=== PATIENT | female | born 1960 | race Caucasian/White ===

== ENCOUNTER → 2017-09-28 | Outpatient (CLI) | payer OTHER ==
--- NOTE | 2017-10-01 08:26 | Diagnostic Imaging Report ---
ADDENDUM #1 TECHNIQUE: Magnetic resonance imaging of the LEFT HAND was performed WITHOUT injected contrast as requested. Inhomogeneous fat saturation that partially limits the exam. The patient returned for additional focal examination of the left thumb without contrast. HISTORY: Sprain of the ulnar collateral ligament, fell, date of injury September 20 COMPARISON: None available FINDINGS: BONES: No focal or infiltrative bone marrow replacing abnormalities identified. No acute fracture is visible; however, a small punctate avulsion would be better visualized on radiographs. JOINTS: Mild to moderate degenerative changes of the first carpometacarpal joint with associated synovitis and trace effusion. SOFT TISSUES: The dorsal fibers of the ulnar collateral ligament complex (proper ulnar collateral ligament) appear intact. Focal attenuation at the proximal phalangeal insertion of the mid to volar fibers (series 7 images 8 and 9) about the junction of the proper an accessory ligament. The volar-most fibers of the accessory ulnar collateral ligament appear intact. No complete tear or ligamentous retraction on the static images. IMPRESSION: 1. Focal partial tear/avulsion of ulnar collateral ligament complex fibers at the first proximal phalangeal insertion about the junction of the distal proper and accessory ligaments. No complete tear, retraction or Stener lesion. 2. 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 Signed by: Dr. Darian Singleton D.O., M.M.M. on 10/04/2017 9:54 AM ORIGINAL REPORT TECHNIQUE: Magnetic resonance imaging of the LEFT HAND was performed WITHOUT injected contrast as requested. Inhomogeneous fat saturation that partially limits the exam. HISTORY: Sprain of the ulnar collateral ligament, fell COMPARISON: None available FINDINGS: The requested evaluation of the ulnar collateral ligament is markedly limited given the large [id number] images of the hand. BONES: No focal or infiltrative bone marrow replacing abnormalities identified. JOINTS: Mild degenerative changes of the first carpometacarpal joint with associated synovitis and trace effusion. SOFT TISSUES: Questionable mild edema about portions of the first metacarpophalangeal joint. IMPRESSION: 1. Suboptimal evaluation of the first metacarpophalangeal joint and surrounding soft tissues. The patient is scheduled to return today for a dedicated MRI of the thumb without contrast. An addendum can be generated to this report upon notification of availability of those images for interpretation. 2. Mild first carpometacarpal joint osteoarthrosis. Discussed with pathology technologist Lyudmila via phone on October 01, 2017 at 0821. Signed by: Dr. Darian Singleton D.O., M.M.M. on 10/01/2017 8:22 AM
== END ==
LOC: MRI 16:51
PROVIDERS: ATTEND Family Medicine
DX: S63.642D Sprain of metacarpophalangeal joint of left thumb, subsequent encounter (principal)

== ENCOUNTER → 2019-09-29 | Day surgery (SDC) | payer BC ==
[~2019-09-29] MED LIST: ACETAMINOPHEN 1000 MG/100 ML IV ONE; ASPIR 8181 MG; BUPIVACAINE 0.25% 30ML SDV INJ ONE; DOXYCYCLINE HY100 MG PO; FENTANYL CITRATE/PF 100MCG/2 ML INJ ONE; INSULIN REGULAR, HUMAN 100 UNIT/1 ML 3ML VIAL ONE; LIDOCAINE 1% W/EPINEPHRINE 20 ML VIAL ONE; LIDOCAINE HCL 1% LOCAL INJ 20 ML VIAL ONE; LIDOCAINE HCL 2% 30 ML TUBE ONE; LIDOCAINE HCL 2% LOCAL INJ 5 ML SDV VIAL INJ ONE; METOCLOPRAMIDE HCL 10 MG/2ML VIAL ONE; MIDAZOLAM HCL 2 MG/2 ML VIAL ONE; ONDANSETRON HCL INJ 2MG/ML 2ML 2 MG/ML VIAL ONE; PROPOFOL IV EMULSION 10 MG/ML 20 ML VIAL ONE; SEVOFLURANE INHAL SOLN 250 ML PEN BTL ONE
--- OUTSIDE RECORDS SUMMARY | 2019-09-29 09:17 | XMS REPORT ---
Author Author [facility] Address Unknown Phone Unavailable Care Team Providers Care Link Machine Operator Name Role Phone KANWAL DELANEY Unavailable Unavailable Payers Payer Name Policy Type Policy Number Effective Date Expiration Date Problems This patient has no known problems. Allergies, Adverse Reactions, Alerts Allergy Name Allergy Type Status Severity Reaction(s) Onset Date Inactive Date Treating Clinician Comments soap DA Active U 2018-06-19 00:00:00 Penicillins DA Active U 2018-06-19 00:00:00 Sulfa (Sulfonamide Antibiotics) DA Active U 2018-06-19 00:00:00 iodine DA Active U 2018-06-19 00:00:00 propoxyphene DA Active U 2018-06-19 00:00:00 povidone-iodine DA Active U 2018-06-19 00:00:00 shellfish derived DA Active DC 2018-06-19 00:00:00 shellfish derived DA Active DC 2012-08-02 00:00:00 soap DA Active U 2011-02-02 00:00:00 povidone-iodine DA Active U 2011-02-02 00:00:00 Penicillins DA Active U 2011-01-31 00:00:00 Sulfa (Sulfonamide Antibiotics) DA Active U 2011-01-31 00:00:00 iodine DA Active U 2011-01-31 00:00:00 propoxyphene DA Active U 2011-01-31 00:00:00 Medications This patient has no known medications. Results Test Description Test Time Test Comments Text Results Atomic Results Result Comments MRI HAND LEFT WO [facility] [address] [place] [address] Patient Name: TWAN SETHI MR #: [id number] : 1960 Age/Sex: 57/F Req #: [id number] [facility] Physician: Ordered by: KANWAL DELANEY DO Report #: [id number] Location: MRI Room/Bed: Procedure: [id number] MRI/MRI HAND LEFT WO Exam Date: 09/28/17 Exam Time: 1800 REPORT STATUS: Signed ADDENDUM #1 TECHNIQUE: Magnetic resonance imaging of the LEFT HAND was performed WITHOUT injected contrast as requested. Inhomogeneous fat saturation that partially limits the exam. The patient returned for additional focal examination of the left thumb without contrast. HISTORY: Sprain of the ulnar collateral ligament, fell, date of injury September 20 COMPARISON: None available FINDINGS: BONES: No focal or infiltrative bone marrow replacing abnormalities identified. No acute fracture is visible; however, a small punctate avulsion would be better visualized on radiographs. JOINTS: Mild to moderate degenerative changes of the first carpometacarpal joint with associated synovitis and trace effusion. SOFT TISSUES: The dorsal fibers of the ulnar collateral liga ment complex (proper ulnar collateral ligament) appear intact. Focal attenuation at the proximal phalangeal insertion of the mid to volar fibers (series 7 images 8 and 9) about the junction of the proper an accessory ligament. The volar-most fibers of the accessory ulnar collateral ligament appear intact. No complete tear or ligamentous retraction on the static images. IMPRESSION: 1. Focal partial tear/avulsion of ulnar collateral ligament complex fibers at the first proximal phalangeal insertion about the junction of the distal proper and accessory ligaments. No complete tear, retraction or Stener lesion. 2. 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 Signed by: Dr. Sarah Singleton D.O., M.M.M. on 10/04/2017 9:54 AM ORIGINAL REPORT TECHNIQUE: Magnetic resonance imaging of the LEFT HAND was performed WITHOUT injected contrast as requested. Inhomogeneous fat saturation that partially limits the exam. HISTORY: Sprain of the ulnar collateral ligament, fell COMPARISON: None available FINDINGS: The requested evaluation of the ulnar collateral ligament is markedly limited given the large [id number] images of the hand. BONES: No focal or infiltrative bone marrow replacing abnormalities identified. JOINTS: Mild degenerative changes of the first carpometacarpal joint with associated synovitis and trace effusion. SOFT TISSUES: Questionable mild edema about portions of the first metacarpophalangeal joint. IMPRESSION: 1. Suboptimal evaluation of the first metacarpophalangeal joint and surrounding soft tissues. The patient is scheduled to return today for a dedicated MRI of the thumb without contrast. An addendum can be generated to this report upon notification of availability of those images for interpretation. 2. Mild first carpometacarpal joint osteoarthrosis. Discussed with agricultural engineering technologist Lyudmila via phone on October 01, 2017 at 0821. Signed by: Dr. Sarah Singleton D.O., M.M.MVikki on 10/01/2017 8:22 AM Dictated By: SARAH SINGLETON DO [id number] Transcribed By: SHAMAR on 10/01/17 0822 COPY TO: KANWAL DELANEY DO
[2019-09-29 10:09] LABS: BASOPHILS % 0.6 % (0.0-1.0); EOSINOPHILS # (AUTO) 0.1 (0.0-0.4); EOSINOPHILS % 2.9 % (0.0-6.0); HEMATOCRIT 42.5 % (34.2-44.1); HEMOGLOBIN 14.2 g/dL (12.0-16.0); LYMPHOCYTES # (AUTO) 1.1 (1.0-3.2); MEAN CORPUSCULAR HEMOGLOBIN 29.8 pg (28-32); MEAN CORPUSCULAR HGB CONC 33.4 g/dL (31-35); MEAN CORPUSCULAR VOLUME 89.1 fL (81-99); MONOCYTES # (AUTO) 0.3 (0.2-0.8); MONOCYTES % 5.9 % (4.4-11.3); NEUTROPHILS # (AUTO) 3.1 (2.1-6.9); PLATELET COUNT 233 x10e3/uL (140-360); RED BLOOD COUNT 4.77 x10e6/uL (3.6-5.1); RED CELL DISTRIBUTION WIDTH 12.6 % (11.7-14.4)
[2019-09-29 14:37] VITALS: BP 120/69
--- NOTE | 2019-09-29 20:03 | Operative Report ---
DATE OF PROCEDURE: 09/29/2019 SURGEON: Harsh Mccoy MD PREOPERATIVE DIAGNOSIS: Perirectal abscess, rule out fistula. POSTOPERATIVE DIAGNOSIS: Perirectal abscess, no fistula. OPERATION PERFORMED: Incision and drainage of perirectal abscess. ANESTHESIA: General. COMPLICATIONS: None. ESTIMATED BLOOD LOSS: Minimal. DESCRIPTION OF PROCEDURE: With the patient lying in bed in the lithotomy position under good general anesthesia, the perineum was prepped with Hibiclens solution and draped in the usual manner. There was in the perineal area at the two o'clock and at the 3 o'clock position, 2 necrotic openings of the skin roughly about 2-3 inches away from the anorectal verge. Examination internally did not reveal the presence of any internal fistulous opening. There was also no induration right around the rectal area, but rather going more towards to the buttocks area. The 2 necrotic areas of the skin were then opened up and a large amount of purulent material and necrotic fat was encountered. Once this was all sharply resected with a knife, exploration of the cavity revealed that there was really no connection towards the rectum. This was all a gluteal type abscess likely secondary to the patient's uncontrolled diabetes. The two wounds were then copiously irrigated with Hibiclens solution and packed with plain gauze. A dressing was applied. The sponge, lap, and needle count was correct. The patient tolerated the procedure well and returned to the recovery room in stable condition. Harsh Mccoy MD JLR/MODL /[id number]
== END | disposition home or self-care (01) ==
LOC: OR 09:11
PROVIDERS: ATTEND Surgery
DX: K61.1 Rectal abscess (principal); E11.9 Type 2 diabetes mellitus without complications; J45.909 Unspecified asthma, uncomplicated; I25.10 Atherosclerotic heart disease of native coronary artery without angina pectoris; I25.2 Old myocardial infarction; I10 Essential (primary) hypertension; Z90.5 Acquired absence of kidney; Z88.0 Allergy status to penicillin; Z91.041 Radiographic dye allergy status; Z79.82 Long term (current) use of aspirin
CPT/HCPCS: 36415; 46040; 82948; 85025; 93005; J0131; J2001; J2405; J2704; J2765; J3010; J1817

== ENCOUNTER → 2020-06-20 | Day surgery (SDC) | payer BC ==
[2020-06-18 16:49] LABS: BASOPHILS % 0.5 % (0.0-1.0); EOSINOPHILS # (AUTO) 0.1 (0.0-0.4); EOSINOPHILS % 2.1 % (0.0-6.0); HEMATOCRIT 44.9 % (34.2-44.1); LYMPHOCYTES # (AUTO) 1.7 (1.0-3.2); LYMPHOCYTES % 28.5 % (18.0-39.1); MEAN CORPUSCULAR HEMOGLOBIN 29.5 pg (28-32); MEAN CORPUSCULAR HGB CONC 33.4 g/dL (31-35); MEAN CORPUSCULAR VOLUME 88.4 fL (81-99); MONOCYTES # (AUTO) 0.4 (0.2-0.8); MONOCYTES % 6.7 % (4.4-11.3); NEUTROPHILS # (AUTO) 3.6 (2.1-6.9); PLATELET COUNT 239 x10e3/uL (140-360); RED BLOOD COUNT 5.08 x10e6/uL (3.6-5.1)
[2020-06-18 17:01] LABS: INR 0.9; PROTHROMBIN TIME 12.6 seconds (11.9-14.5)
[2020-06-18 17:09] LABS: ALBUMIN 4.2 g/dL (3.5-5.0); ALBUMIN/GLOBULIN RATIO 1.1 (0.8-2.0); CREATININE, SERUM 1.04 mg/dL (0.57-1.11)
--- NOTE | 2020-06-18 17:14 | NUR ---
8394 alert lab received reported to Patient Care Technician Instructor team and Glucose 486 ds/rn
--- NOTE | 2020-06-18 17:40 | NUR ---
1740 spoke with taxonomist Md Dr Wolfe for Dr Dumont no further orders. Reviewed med list with Md and Md states those levels are normal for her. Questionable adherence to Dm medications Probable non fasting sugar, CCL staff to f/o on procedural day with BS pre procedure per Dr Wolfe for Dr Dumont ds/rn
[2020-06-20] VITALS (9 sets, daily range): BP systolic 106–143; BP diastolic 66–96
[~2020-06-20] VITALS: Ht 152.4 cm; Wt 67.1 kg
[~2020-06-20] MED LIST changes: -ACETAMINOPHEN 1000 MG/100 ML IV ONE; +ALPRAZOLAM 0.5 MG TAB ONE; +ASPIRIN ENTERI325 MG PO; -BUPIVACAINE 0.25% 30ML SDV INJ ONE; +DIPHENHYDRAMINE HCL INJ 50 MG/ML VIAL ONE; +FAMOTIDINE 20 MG/2 ML VIAL IV ONE; +HEPARIN SOD/SOD CHLORIDE 2,000 ML ONE; -INSULIN REGULAR, HUMAN 100 UNIT/1 ML 3ML VIAL ONE; +IOPAMIDOL 370 MG/ML 200 ML INFUS..BTL INJ ONE; -LIDOCAINE 1% W/EPINEPHRINE 20 ML VIAL ONE; -LIDOCAINE HCL 1% LOCAL INJ 20 ML VIAL ONE; -LIDOCAINE HCL 2% 30 ML TUBE ONE; +LIDOCAINE HCL 2% LOCAL 20 ML VIAL ONE; -LIDOCAINE HCL 2% LOCAL INJ 5 ML SDV VIAL INJ ONE; +METHYLPREDNISOLONE SOD SUCC 125 MG/2ML VIAL ONE; -METOCLOPRAMIDE HCL 10 MG/2ML VIAL ONE; -ONDANSETRON HCL INJ 2MG/ML 2ML 2 MG/ML VIAL ONE; -PROPOFOL IV EMULSION 10 MG/ML 20 ML VIAL ONE; -SEVOFLURANE INHAL SOLN 250 ML PEN BTL ONE; +SODIUM CHLORIDE 0.9% 1000ML 1,000 ML ONE; +SYMBICORT 16010.2 GM INH
--- NOTE | 2020-06-20 14:26 | NUR ---
1426p CCL recovery phase initiated rm #10 Rt TR band no fix needs surgical consult Bedside report received from Orlando Donaldson RN. Alert oriented and appropriate, PERRLA, respirations even and unlabored to room air. Pulses x4 extremities equal and strong. Right hand + neurovascular function Cap fill brisk < 3 sec. TR band present w/ reported 12ml to band. No s/s of hematoma or gross abnormality. Rt Tr band no gross issues pain,pallor,pressure or dysrhythmia.TR band air removal at 1515pm. Skin warm and dry integrity appears intact. IV 0.9Ns 100cchr to left hand, presents healthy w/o s/s of infiltration or complaint. Abdomen soft and supple. pt offered toileting, denies need to urinate or defecate. No personal affects with patient. Family not available. Pt understanding of POC. Bedside monitoring initiated. BS rechecked per Md request is 300 per fingerstick. Report to Dr Dumont that needs to restart home Januvia and f/o diabetes MD Also requires surgical consult for f/o of heart cath results.To call office tomorrow if not appt set up will assist. Currently w/o complaint of pain or need. Call light within reach, bed low and locked, side rails up x2. pt using personal mask for COVID-19 mitigation. ds/rn
--- NOTE | 2020-06-20 14:30 | NUR ---
1430p family arrived at bedside and Dr Dumont spoke with him about POC pt opted to see CV surgical consult to evaluate further POC.Dr Dumont office will coordinate and pt knows to contact office tommorrow is not notified first. Also aware if importance to restart Januvia as previously ordered. Pt discussed many stressors with symptoms of "panic attacks" and i urged her to speak Md and look at support systems as she may need further support. Though spousal support present and encouraging at bedside.CD and discharge papers given to to give copy to CV evaluation. albert/rn
--- NOTE | 2020-06-20 15:15 | NUR ---
1515 RADIAL Compression removal: Initial Cuff volume 12 cc 1515p -2cc Removed No hematoma/bleeding noted with normal neurovascular function. 1530p -5cc Removed No hematoma/ bleeding noted with normal neurovascular function. 1545p -5cc Removed No hematoma/bleeding noted with normal neurovascular function. Air removal completed. Stasis achieved sterile 2x2,Tegaderm, Coban dressing No hematoma, bleeding noted with normal neurovascular function. Pt instructed on POC. Ds/Rn
--- NOTE | 2020-06-20 16:00 | NUR ---
1600p TRBAND Pt meets discharge criteria. VS wnl, alert and oriented. Pt and Family Understands discharge instruction. Overall general assess w/o gross outliers. Skin warm, dry, and intact. Right radial dressing soft w/o s/s of hematoma. + neurovascular function of right hand present. IV removed and appears distal tip is intact. Pt maintains mask on for COVID 19 precautions being taken by wheel chair to awaiting car. Transfers w/o gross distress with discharge paperwork in hand with CD and diagram.. Tolerated po intake. Back to baseline orientation.Aware CV surgical consult to be set up by Dr Dumont office and to f/o if not receiving call. Also will take Januvia previously ordered. Has 300 fasting glucose fingerstick post procedure today. said we can watch and pt take home med. albert/rn
--- NOTE | 2020-06-27 12:28 | Operative Report ---
DATE OF PROCEDURE: 06/20/2020 SURGEON: Surinder Dumont DO PROCEDURES PERFORMED: 1. Conscious sedation, 30 minutes. 2. Selective coronary angiography x3. 3. Left heart catheterization. PREPROCEDURE DIAGNOSES: Coronary artery disease with chest pain and abnormal stress test. POSTPROCEDURE DIAGNOSES: 1. Coronary artery disease with chest pain and abnormal stress test. 2. Multivessel coronary disease. ESTIMATED BLOOD LOSS: Less than 20 mL. SPECIMENS REMOVED: None. PROCEDURE IN DETAIL: After informed consent was obtained, the patient was brought to the cardiac catheterization laboratory in a fasting and nonsedated state. Bilateral groins and right anterior wrist were prepped and draped in usual sterile fashion. A 2% lidocaine was infiltrated over the right anterior wrist for local anesthesia. The patient received fentanyl and midazolam administered by the civil laboratory technician nurse and her neurologic and physiologic status was monitored by myself and civil laboratory technician staff for 30 minutes. Next, using micropuncture needle, the right radial artery was accessed via modified Seldinger technique and a 5/6 Slender sheath was placed. Next, diagnostic selective coronary angiography x2 and left heart catheterization was performed using a TIG-4 catheter. The patient tolerated the procedure well with no immediate complications and was transferred to room in stable condition. PROCEDURAL FINDINGS: 1. There are dual ostia for the LAD and left circumflex coronary arteries. The ostial to proximal LAD is patent with luminal irregularities. The mid LAD has a 60% stenosis of the takeoff of the first diagonal branch. First diagonal branch is medium in caliber and has an ostial to proximal 80% long tubular stenosis. The mid to distal LAD has 60% to 70% stenosis. 2. The left circumflex coronary artery has a separate ostium of the aorta and provides two obtuse marginal vessels. The 2nd OM has 100% chronic total occlusion and fills and faintly distally via collaterals. 3. The right coronary artery is a large dominant vessel. There are two tandems 60% to 70% stenotic lesions in the proximal to midportion. There is a prior stent placed in the midportion of the RCA and is patent with mild in-stent restenosis. The distal RCA just prior to the takeoff of the PDA and posterior lateral branches has severe 80% to 90% stenosis. There is a large posterior lateral branch that has a mid 90% stenosis. There is moderate disease throughout the PDA. 4. Left ventricular end-diastolic pressure is 11 mmHg. No aortic valve gradient present upon pullback. IMPRESSION: Severe multivessel coronary artery disease. RECOMMENDATIONS: Refer for coronary artery bypass graft surgery versus high-risk percutaneous coronary intervention. DO FAROOQ Mina/EVERETTEL /[id number]
== END | disposition home or self-care (01) ==
LOC: CATH LAB 11:11
PROVIDERS: ATTEND Internal Medicine Cardiovascular Disease
DX: I25.10 Atherosclerotic heart disease of native coronary artery without angina pectoris (principal); R94.39 Abnormal result of other cardiovascular function study; I25.2 Old myocardial infarction; I10 Essential (primary) hypertension; E78.5 Hyperlipidemia, unspecified; E11.9 Type 2 diabetes mellitus without complications; J45.909 Unspecified asthma, uncomplicated; Z88.0 Allergy status to penicillin; Z88.2 Allergy status to sulfonamides; Z91.041 Radiographic dye allergy status; Z01.812 Encounter for preprocedural laboratory examination; Z20.828 Contact with and (suspected) exposure to other viral communicable diseases; Z79.82 Long term (current) use of aspirin; Z82.49 Family history of ischemic heart disease and other diseases of the circulatory system; Z83.3 Family history of diabetes mellitus
CPT/HCPCS: 36415 ×2; 80053; 82948; 85025; 85610; 93458; C1769; C1887; C1894; J1200; J2001; J2250; J2930; J3010; J7030; Q9967; U0002; 99152; 99153